=== PATIENT | female | born 1980 ===

== ENCOUNTER 2016-09-27 09:50 | Emergency (ER) | payer OTHER ==
[2016-09-27 10:27] VITALS: BP 117/79
[2016-09-27] MEDS ORDERED: HYDROcodone/ACETAMIN 5-325 MG* 1 TAB PO ONE (10:49)
--- NOTE | 2016-09-27 11:01 | UC ---
Knee Pain HPI - HPI Summary HPI Summary: HIKING IN [place] YESTERDAY AFTERNOON WHEN SHE FELL AND TWISTED RIGHT KNEE AND ANKLE/FOOT. WAS UNABLE TO WALK FOR "A WHILE" AFTER. HAD TO STAY DOWN AND REST. NOW CAN WALK BUT WITH SIGNIFICANT PAIN. KNEE FEELS UNSTABLE. - History of Current Complaint Chief Complaint: UCLowerExtremity Stated Complaint: FOOT AND KNEE INJURY Time Seen by Provider: 09/27/16 10:25 Hx Obtained From: Patient Hx Last Menstrual Period: 09/12/16 Onset/Duration: Sudden Onset Severity Initially: Moderate Severity Currently: Moderate Pain Intensity: 8 Pain Scale Used: 0-10 Numeric Character: Sharp, Aching Aggravating Factor(s): Movement, Weight Bearing Alleviating Factor(s): Rest Able to Bear Weight: Yes - WITH PAIN - Allergies/Home Medications Allergies/Adverse Reactions: Allergies Allergy/AdvReac Type Severity Reaction Status Date / Time Amoxicillin Allergy Severe Hives Verified 09/27/16 10:27 Ciprofloxacin [From Cipro] Allergy Intermediate Hives Verified 07/08/15 10:14 PMH/Surg Hx/FS Hx/Imm Hx Previously Healthy: Yes Endocrine History Of: Denies: Diabetes, Thyroid Disease Cardiovascular History Of: Denies: Cardiac Disorders, Hypertension Respiratory History Of: Denies: COPD, Asthma GI/ History Of: Denies: Ulcer - Surgical History Surgical History: Yes Surgery Procedure, Year, and Place: csections x3, tubes in ears, tubal - Family History Known Family History: Positive: Cardiac Disease, Diabetes - Social History Alcohol Use: Occasionally Substance Use Type: None Smoking Status (MU): Heavy Every Day Tobacco Smoker Type: Cigarettes Amount Used/How Often: 1/2ppd Household Exposure Type: Cigarettes - Immunization History Most Recent Tetanus Shot: utd Review of Systems Constitutional: Negative Skin: Other - ABRASIONS RIGHT KNEE Respiratory: Negative Cardiovascular: Negative Gastrointestinal: Negative Musculoskeletal: Arthralgia, Decreased ROM All Other Systems Reviewed And Are Negative: Yes Physical Exam Triage Information Reviewed: Yes Appearance: Well-Appearing, Well-Nourished, Pain Distress - MODERATE Vital Signs: Initial Vital Signs Temp 97.6 F 09/27/16 10:19 Pulse 105 09/27/16 10:19 Resp 16 09/27/16 10:19 BP 117/79 09/27/16 10:19 Pulse Ox 100 04/09/17 10:19 Vital Signs Reviewed: Yes Eyes: Positive: Conjunctiva Clear ENT: Positive: Hearing grossly normal Neck: Positive: Supple Respiratory: Positive: No respiratory distress, No accessory muscle use Cardiovascular: Positive: Pulses Normal Abdomen Description: Positive: Soft Musculoskeletal: Positive: No Edema, ROM Limited @ - RIGHT KNEE, Other: - RIGHT KNEE: EXAM LIMITED DUE TO PT DISCOMFORT. DIFFUSELY TENDER. NEG LACHMANS. NEG DRAWERS SIGNS. UNABLE TO PERFORM MCMURRAYS. NO TENDERNESS OVER PATELLAR LIGAMENT. MILDLY TENDER OVER QUADRICEPS TENDON. DECREASED ROM (FLEXION). Neurological: Positive: Alert Psychological: Positive: Age Appropriate Behavior Skin: Positive: Other - SPFL ABRASIONS RIGHT KNEE. Negative: rashes Diagnostics - Radiology RIGHT KNEE XRAYS Xray Interpretation: No Acute Changes Radiology Interpretation Completed By: Radiologist No standard instances Xray Interpretation: No Acute Changes Radiology Interpretation Completed By: Radiologist Knee Pain Course/Dx - Differential Dx/Diagnosis Provider Diagnoses: 1. RIGHT KNEE PAIN - SUSPECTED INTERNAL INJURY. 2. RIGHT ANKLE/FOOT SPRAIN Discharge - Discharge Plan Condition: Stable Disposition: HOME Prescriptions: Naproxen [Naproxen EC] 500 mg PO BID PRN #30 tab PRN Reason: Pain Patient Education Materials: Ankle Sprain (ED), Knee Pain (ED) Forms: *Work Release Referrals: Claire Webster MD [Medical Doctor] - 1 Week Anderson Jacobson MD [Primary Care Provider] - If Needed Additional Instructions: ANKLE AND KNEE XRAYS UNREMARKABLE TODAY. SPRAIN VS INTERNAL INJURY TO KNEE. FOLLOW-UP WITH YOUR PCP OR ORTHO IF YOU DO NOT IMPROVE SIGNIFICANTLY OVER THE NEXT FEW DAYS. YOU MAY BENEFIT FROM FURTHER IMAGING. SUSPECTED INTERNAL KNEE INJURY: The examiner of your injured knee suspects an internal injury to the cartilage or internal ligaments. This must be further investigated by an audiovisual production specialist. The knee should be protected, ice packed, and elevated while awaiting your follow-up exam by the orthopedist. If there is severe swelling, severe pain, or any new symptoms while awaiting your exam, you should call the orthopedist. (If he/she is unavailable, call us or return for re-examination.)
--- NOTE | 2016-09-27 11:36 | RAD ---
INDICATION: Right ankle pain COMPARISON: None TECHNIQUE: AP, lateral, and oblique views were obtained. FINDINGS: The bony structures, joint spaces, and soft tissues are normal for age. IMPRESSION: NEGATIVE EXAMINATION.
--- NOTE | 2016-09-27 11:36 | RAD ---
INDICATION: Right knee pain COMPARISON: None TECHNIQUE: AP, lateral, tunnel, and sunrise views were obtained. FINDINGS: The bony structures, joint spaces, and soft tissues are normal for age. IMPRESSION: NEGATIVE EXAMINATION.
== END 2016-09-27 11:49 | disposition home or self-care (01) ==
LOC: UCEAST 09:50
DX: S93.401A Sprain of unspecified ligament of right ankle, initial encounter (principal); F17.210 Nicotine dependence, cigarettes, uncomplicated; M25.561 Pain in right knee; W18.30XA Fall on same level, unspecified, initial encounter; Y93.01 Activity, walking, marching and hiking; Z88.3 Allergy status to other anti-infective agents
CPT/HCPCS: 99213; G0463

== ENCOUNTER 2016-12-15 14:22 | Emergency (ER) | payer OTHER ==
[2016-12-15 14:29] VITALS: BP 128/77
[2016-12-15] MEDS ORDERED: Ketorolac INJ* 60 MG/2 ML VIAL IM ONE (15:00)
--- NOTE | 2016-12-15 16:13 | UC ---
Back Pain HPI - HPI Summary HPI Summary: SEVEN DAYS AGO, MOVED COUCH. SINCE THAT TIME HAS HAD PAIN IN LOW BACK THAT RADIATES DOWN RIGHT HIP. HAD PREVIOUS BACK INJURY AT AGE 15; NO PROBLEMS SINCE. NO LOSS OF CONTROL OF BLADDER OR BOWELS, ABLE TO BEAR WEIGHT - History of Current Complaint Chief Complaint: UCBackPain Stated Complaint: BACK PAIN Time Seen by Provider: 12/15/16 14:50 Hx Obtained From: Patient Hx Last Menstrual Period: 12/13/16 Onset/Duration: Sudden Onset, Lasting Weeks, Still Present Timing: Lasting Days Severity Initially: Moderate Severity Currently: Moderate Back Pain: Radiates To - RIGHT HIP Character: Dull, Aching, Spasmodic Aggravating: Movement, Lifting, Bending, Walking Alleviating: Rest, Position Associated Signs And Symptoms: Negative: Fever, Flank Pain, Bladder Incontinence , Bowel Incontinence Related History: Previous Back Injury - Risk Factors AAA Risk Factors: Negative TAD Risk Factors: Negative Cauda Equina Risk Factors: Negative - Allergies/Home Medications Allergies/Adverse Reactions: Allergies Allergy/AdvReac Type Severity Reaction Status Date / Time Amoxicillin Allergy Severe Hives Verified 12/15/16 14:29 Ciprofloxacin [From Cipro] Allergy Intermediate Hives Verified 12/15/16 14:29 PMH/Surg Hx/FS Hx/Imm Hx Previously Healthy: Yes - Surgical History Surgical History: Yes Surgery Procedure, Year, and Place: csections x3, tubes in ears, tubal - Family History Known Family History: Positive: Cardiac Disease, Diabetes - Social History Alcohol Use: Occasionally Substance Use Type: None Smoking Status (MU): Heavy Every Day Tobacco Smoker Type: Cigarettes Amount Used/How Often: 1/2ppd Household Exposure Type: Cigarettes - Immunization History Most Recent Tetanus Shot: utd Review of Systems Constitutional: Negative Skin: Negative Eyes: Negative ENT: Negative Respiratory: Negative Cardiovascular: Negative Gastrointestinal: Negative Genitourinary: Negative Motor: Negative Neurovascular: Negative Musculoskeletal: Arthralgia, Myalgia Neurological: Negative Psychological: Negative All Other Systems Reviewed And Are Negative: Yes Physical Exam Triage Information Reviewed: Yes Appearance: Well-Appearing, No Pain Distress, Well-Nourished Vital Signs: Initial Vital Signs Temp 98.0 F 12/15/16 14:25 Pulse 78 12/15/16 14:25 Resp 18 12/15/16 14:25 BP 128/77 12/15/16 14:25 Pulse Ox 99 12/15/16 14:25 Vital Signs Reviewed: Yes Eye Exam: Normal Eyes: Positive: Conjunctiva Clear ENT Exam: Normal ENT: Positive: Normal ENT inspection, Hearing grossly normal, TMs normal Dental Exam: Normal Neck exam: Normal Respiratory Exam: Normal Respiratory: Positive: Chest non-tender, Lungs clear, Normal breath sounds, No respiratory distress Cardiovascular Exam: Normal Cardiovascular: Positive: RRR, No Murmur, Pulses Normal Abdominal Exam: Normal Musculoskeletal: Positive: Strength Intact, ROM Intact, No Edema, Other: - POSITIVE STRAIGHT LEG RAISE RIGHT LEG 20 DEGREES Neurological Exam: Normal Psychological Exam: Normal Skin Exam: Normal Back Pain Course/Dx - Differential Dx/Diagnosis Differential Diagnosis/HQI/PQRI: Strain, Sprain Provider Diagnoses: LOW BACK STRAIN Discharge - Discharge Plan Condition: Stable Disposition: HOME Prescriptions: Cyclobenzaprine TAB* [Flexeril 10 MG TAB*] 10 mg PO TID PRN #15 tab PRN Reason: Spasms Hydrocodone-Acetaminophen [[place] 5-325 mg] 1 tab PO Q8HR PRN #9 tab MDD three tabs PRN Reason: Pain Naproxen Sodium [Naproxen Sodium 500 MG TAB] 500 mg PO BID #10 tab Patient Education Materials: Low Back Strain (ED) Referrals: Anderson Jacobson MD [Primary Care Provider] - Additional Instructions: PHYSICAL THERAPY REFERRAL: You have been prescribed physical therapy. Treatments may include stretching, exercise, application of heat or cold, and other modalities. After an injury, PT can reduce swelling and pain. In recovery, PT is used to restore mobility and strength. Your specific treatment goals are: Reduction of Swelling (EGS, US, ice as needed) ___x__ Pain Reduction (EGS, US, ice as needed) ____x_ TENS Pack Fitting and Instruction Wound Hydrotherapy ____x_ Preservation of Mobility ___x__ Orthodoxy of Mobility ___x__ Strength Orthodoxy ___x__ Work or Sports Hardening This instruction sheet also serves as your PHYSICAL THERAPY REFERRAL! Please take it with you to the therapist, so he/she will be aware of your diagnosis and treatment plan. You may see the physical therapist of your choice for these treatments, but may wish to check with your insurance to be sure the provider you select is covered. It's important to see the doctor to whom you have been referred for follow up.
== END 2016-12-15 15:38 | disposition home or self-care (01) ==
LOC: UCEAST 14:22
DX: S39.012A Strain of muscle, fascia and tendon of lower back, initial encounter (principal); X50.0XXA Overexertion from strenuous movement or load, initial encounter; Y93.89 Activity, other specified; Y92.008 Other place in unspecified non-institutional (private) residence as the place of occurrence of the external cause; Y99.9 Unspecified external cause status
CPT/HCPCS: 81003; 96372; 99212; G0463; J1885

== ENCOUNTER 2018-03-09 17:46 | Emergency (ER) | payer OTHER ==
[2018-03-09 18:01] VITALS: BP 118/81
--- NOTE | 2018-03-09 18:13 | UC ---
Respiratory Complaint HPI - HPI Summary HPI Summary: 37 yo female presents with sinus pain/pressure/congestion, chest congestion, and productive cough that started 1 week ago getting progressively worse. Over the last 2-3 days has had some chills and body aches. Has a hx of asthma. Has been taking mucinex with no relief. She is still smoking daily. - History of Current Complaint Chief Complaint: UCRespiratory Stated Complaint: RESP COMPLAINT Time Seen by Provider: 03/09/18 18:12 Hx Obtained From: Patient Hx Last Menstrual Period: 1 week ago Onset/Duration: Gradual Onset Severity Initially: Mild Severity Currently: Moderate Pain Intensity: 7 Pain Scale Used: 0-10 Numeric Character: Cough: Productive - Allergies/Home Medications Allergies/Adverse Reactions: Allergies Allergy/AdvReac Type Severity Reaction Status Date / Time amoxicillin Allergy Hives Verified 03/09/18 17:54 ciprofloxacin Allergy Hives Verified 03/09/18 17:54 Home Medications: Home Medications Albuterol 2.5MG/3ML (0.083%)* [Ventolin 2.5 MG/3 ML NEB.JANNET*] 2.5 mg INH Q4H [History Confirmed 03/09/18] Beclomethasone 80 MCG MDI(NF) [Qvar 80 MCG MDI(NF)] 2 puff INH BID 03/09/18 [ History Confirmed 03/09/18] Guaifenesin/Pseudoephedrne HCl [Mucinex D] 2 tab PO Q12HR PRN 03/09/18 [History Confirmed 03/09/18] PMH/Surg Hx/FS Hx/Imm Hx Respiratory History: Asthma - Surgical History Surgical History: Yes Surgery Procedure, Year, and Place: csections x3, tubes in ears, tubal - Family History Known Family History: Positive: Cardiac Disease, Diabetes - Social History Occupation: Employed Full-time Lives: With Family Alcohol Use: Rare Substance Use Type: None Smoking Status (MU): Heavy Every Day Tobacco Smoker Type: Cigarettes Amount Used/How Often: 1/2ppd Household Exposure Type: Cigarettes - Immunization History Most Recent Tetanus Shot: utd Review of Systems Constitutional: Fever, Chills, Fatigue Skin: Negative Eyes: Negative ENT: Sinus Congestion, Sinus Pain/Tenderness Respiratory: Cough Cardiovascular: Negative Gastrointestinal: Negative Neurovascular: Negative Neurological: Negative Psychological: Negative All Other Systems Reviewed And Are Negative: Yes Physical Exam - Summary Physical Exam Summary: GENERAL: NAD. WDWN. Mildly ill appearing. SKIN: No rashes, sores, lesions, or open wounds. HEENT: Head: AT/NC Eyes: Conjunctiva clear without inflammation or discharge. Ears: Hearing grossly normal. TMs intact, no bulging, erythema, or edema. Nose: Nasal mucosa mildly swollen and erythematous with yellow discharge. TTP maxillary and frontal sinus. Throat: Posterior oropharynx without exudates, erythema, or tonsillar enlargement. Uvula midline. NECK: Supple. Nontender. No lymphadenopathy. CHEST: Moderate wheezing throughout. No r/r. No accessory muscle use. Breathing comfortably and in no distress. CV: RRR. Without m/r/g. Pulses intact. Cap refill <2seconds NEURO: Alert. PSYCH: Age appropriate behavior. Triage Information Reviewed: Yes Vital Signs: Initial Vital Signs Temp 98.4 F 03/09/18 17:56 Pulse 110 03/09/18 17:56 Resp 18 03/09/18 17:56 BP 118/81 03/09/18 17:56 Pulse Ox 95 03/09/18 17:56 Vital Signs Reviewed: Yes Diagnostic Evaluation - Laboratory O2 Sat by Pulse Oximetry: 95 Respiratory Course/Dx - Course Course Of Treatment: CXR: No radiologist read after 1800 therefore wet read by myself is negative for PNA or active disease. She was given a duoneb in the clinical course and reported significant improvement and ease of breathing. Decreased wheezing s/p. Will rx for doxycyline and prednisone. Suspect asthma exacerbation vs bronchitis. - Differential Dx/Diagnosis Provider Diagnoses: Asthma exacerbation. Sinusitis Discharge - Sign-Out/Discharge Documenting (check all that apply): Patient Departure All imaging exams completed and their final reports reviewed: No - Discharge Plan Condition: Stable Disposition: HOME Prescriptions: Albuterol 2.5MG/3ML (0.083%)* [Ventolin 2.5 MG/3 ML NEB.JANNET*] 2.5 mg INH Q6H PRN #30 neb.jannet PRN Reason: Wheezing DOXYcycline CAP(*) [DOXYcycline 100MG CAP(*)] 100 mg PO BID #14 cap predniSONE TAB* [Deltasone 20 MG TAB*] 40 mg PO DAILY #15 tab Patient Education Materials: Acute Bronchitis (ED) Forms: *Work Release Referrals: Anderson Jacobson MD [Primary Care Provider] - Additional Instructions: If you develop a fever, shortness of breath, chest pain, new or worsening symptoms - please call your PCP or go to the ED. - Billing Disposition and Condition Condition: STABLE Disposition: Home
[2018-03-09] MEDS ORDERED: Albuterol/Ipratropium NEB.SOL* Albuterol 2.5 MG/Ipratropium 0.5 MG 3 ML INH ONE (18:18)
--- NOTE | 2018-03-10 07:58 | RAD ---
Indication: Cough. 2 views of the chest including dual energy PA views demonstrate no mediastinal shift. Heart is of normal size and configuration. Lung sorto demonstrate no pleural fluid, pneumonia or pneumothorax. IMPRESSION: No active cardiopulmonary disease is noted. R0
--- NOTE | 2018-03-10 10:35 | UC ---
- Progress Note Progress Note: XR reading: IMPRESSION: No active cardiopulmonary disease is noted. No change in plan Discharge - Sign-Out/Discharge Documenting (check all that apply): Post-Discharge Follow Up All imaging exams completed and their final reports reviewed: Yes - Discharge Plan Condition: Stable Disposition: HOME Prescriptions: Albuterol 2.5MG/3ML (0.083%)* [Ventolin 2.5 MG/3 ML NEB.JANNET*] 2.5 mg INH Q6H PRN #30 neb.jannet PRN Reason: Wheezing DOXYcycline CAP(*) [DOXYcycline 100MG CAP(*)] 100 mg PO BID #14 cap predniSONE TAB* [Deltasone 20 MG TAB*] 40 mg PO DAILY #15 tab Patient Education Materials: Acute Bronchitis (ED) Forms: *Work Release Referrals: Anderson Jacobson MD [Primary Care Provider] - Additional Instructions: If you develop a fever, shortness of breath, chest pain, new or worsening symptoms - please call your PCP or go to the ED. - Billing Disposition and Condition Condition: STABLE Disposition: Home
== END 2018-03-09 19:22 | disposition home or self-care (01) ==
LOC: UCEAST 17:46
DX: J45.901 Unspecified asthma with (acute) exacerbation (principal); J32.9 Chronic sinusitis, unspecified; Z88.1 Allergy status to other antibiotic agents; Z88.0 Allergy status to penicillin; F17.210 Nicotine dependence, cigarettes, uncomplicated
CPT/HCPCS: 71046; 99212; A9270-GY; G0463

== ENCOUNTER 2019-01-13 12:13 | Emergency (ER) | payer OTHER ==
[2019-01-13 12:25] VITALS: BP 137/81
--- NOTE | 2019-01-13 12:44 | UC ---
Abdominal Pain Female HPI - HPI Summary HPI Summary: 38-year-old female a history of tubal ligation, 3 presents with left lower quadrant intermittent pain. Patient reports over the past several days she has noticed intermittent tugging and aching in her left lower quadrant that started and she was moving something heavy. Currently without pain. Patient denies vaginal bleeding at this time but did just finish her menstrual cycle. Patient denies vaginal discharge or recent STDs. No dysuria or hematuria. No vomiting, or diarrhea. Patient states she had similar pain years ago when she had an ovarian cyst and also when she was . - History of Current Complaint Chief Complaint: UCAbdominalPain Stated Complaint: STOMACH BURNING/PULLING Time Seen by Provider: 01/13/19 12:20 Hx Last Menstrual Period: January 07- Pain Intensity: 0 Allergies/Adverse Reactions: Allergies Allergy/AdvReac Type Severity Reaction Status Date / Time amoxicillin Allergy Hives Verified 01/13/19 12:25 ciprofloxacin Allergy Hives Verified 01/13/19 12:25 PMH/Surg Hx/FS Hx/Imm Hx Previously Healthy: Yes - Surgical History Surgical History: Yes Surgery Procedure, Year, and Place: csections x3, tubes in ears, tubal ligation - Family History Known Family History: Positive: Cardiac Disease, Diabetes - Social History Alcohol Use: Occasionally Substance Use Type: None Smoking Status (MU): Heavy Every Day Tobacco Smoker Type: Cigarettes Amount Used/How Often: 1/2ppd Household Exposure Type: Cigarettes - Immunization History Most Recent Tetanus Shot: utd Review of Systems All Other Systems Reviewed And Are Negative: Yes Gastrointestinal: Positive: Abdominal Pain. Negative: Vomiting, Diarrhea, Nausea Genitourinary: Negative: Vaginal/Penile Discharge, Vaginal/Penile Pain Physical Exam - Summary Physical Exam Summary: Constitutional: Well-developed, Well-nourished, Alert. (-) Distressed Skin: Warm, Dry HENT: Normocephalic; Atraumatic Eyes: Conjunctiva normal Neck: Musculoskeletal ROM normal neck. (-) JVD, (-) Stridor Cardio: Rhythm regular, rate normal, Heart sounds normal; Intact distal pulses; Radial pulses are 2+ and symmetric. (-) Murmur Pulmonary/Chest wall: Effort normal. (-) Respiratory distress, (-) Wheezes, (-) Rales Abd: Soft, (-) tenderness, (-) Distension, (-) Guarding, (-) Rebound : External Exam: normal labia, no masses, lacerations or abnormal lesions visualized Speculum Exam: Cervical os closed, no signs of inflammation, no discharge, no blood in vault Bimanual Exam: no CMT, no adnexal tenderness bilaterally Musculoskeletal: (-) Edema Lymph: (-) Cervical adenopathy Neuro: Alert, Oriented x3 Psych: Mood and affect Normal Vital Signs: Initial Vital Signs Temp 37.3 C 01/13/19 12:20 Pulse 86 01/13/19 12:20 Resp 16 01/13/19 12:20 BP 137/81 01/13/19 12:20 Pulse Ox 98 01/13/19 12:20 Re-Evaluation - Re-Evaluation First Eval Re-Evaluation Time: 14:14 Comment: TVUS neg aside from follicle. Patient feeling better. To follow up w PCP and go to ED for continued pain Abd Pain Female Course/Dx - Course Course Of Treatment: 38 y/o F w LLQ pain intermittently for several days DDx includes ovarian cyst, ectopic, torsion, fibroids, diverticulosis, hernia Exam relatively unremarkable today, no rigidity or suggestions of acute surgical abd. Check upreg to r/o ectopic. Pt denies vaginal discharge, also with no fever, so less likely PID but will send Chlam. Will obtain UA to assess for UTI. Check TVUS for ovarian pathology. Will continue to monitor - Differential Dx/Diagnosis Provider Diagnosis: Pelvic pain Discharge - Sign-Out/Discharge Documenting (check all that apply): Patient Departure All imaging exams completed and their final reports reviewed: Yes - Discharge Plan Condition: Stable Disposition: HOME Patient Education Materials: Pelvic Pain in Women (ED) Referrals: Anderson Jacobson MD [Primary Care Provider] - Additional Instructions: You were seen for pelvic pain. Her transvaginal ultrasound showed a follicle on her left ovary which may be the cause of her pain. Please go to the emergency department for continued pain, fevers, nausea, vomiting or are concerned If any studies were not completed at the time of discharge you will be called with the relevant results. Please follow up with your primary care doctor in next 2-3 days and return to emergency department for worsening or concerning symptoms. - Billing Disposition and Condition Condition: STABLE Disposition: Home
[2019-01-16 13:11] LABS: Neisseria gonorrhoeae (GC) RNA Negative (Negative)
== END 2019-01-13 14:30 | disposition home or self-care (01) ==
LOC: UCEAST 12:13
DX: R10.2 Pelvic and perineal pain (principal); F17.210 Nicotine dependence, cigarettes, uncomplicated
CPT/HCPCS: 76830; 81002; 81025; 87491; 87591; 99212; G0463